=== PATIENT | male | born 1995 | race African-American/Black ===

== ENCOUNTER 2021-06-03 10:02 | Outpatient (CLI) | payer BC | END 2021-06-03 10:03 | disposition home or self-care (01) | LOC: CSHCT 10:02 | PROVIDERS: ATTEND Surgery | DX: K42.9 Umbilical hernia without obstruction or gangrene (principal); Q79.8 Other congenital malformations of musculoskeletal system; K76.0 Fatty (change of) liver, not elsewhere classified; K80.20 Calculus of gallbladder without cholecystitis without obstruction | CPT/HCPCS: 74176 ==

== ENCOUNTER 2021-06-13 11:26 | Outpatient (CLI) | payer BC ==
[2021-06-14 16:40] LABS: SARS-CoV-2 PCR by NAA DETECTED (NotDetected)
== END 2021-06-13 11:27 | disposition home or self-care (01) ==
LOC: CSHLAB 11:26
PROVIDERS: ATTEND Surgery
DX: U07.1 COVID-19 (principal); K42.9 Umbilical hernia without obstruction or gangrene
CPT/HCPCS: U0003; U0005

== ENCOUNTER 2021-07-14 06:03 | Day surgery (SDC) | payer BC ==
[2021-06-13 13:02] VITALS: BMI 40.5
[2021-07-14] MEDS ORDERED: Bupivacaine PF 0.5% 30 ML VIAL ONE (06:42)
[2021-07-14] MEDS ORDERED: Lidocaine 1% MPF 2 ML VIAL ONE (06:43)
[2021-07-14] MEDS ORDERED: Midazolam HCl 2 mg/2 ml Vial ONE (07:21)
[2021-07-14] MEDS ORDERED: ceFAZolin 2 GM/Dextrose 50 ML IVPB ONE (07:24)
[2021-07-14] MEDS ORDERED: PROPOFOL 20 ML ONE (07:30)
[2021-07-14] MEDS ORDERED: Lidocaine 2% PF 5 ML VIAL ONE (07:30)
[2021-07-14] MEDS ORDERED: Ondansetron PF 4 MG/2 ML Vial ONE (07:30)
[2021-07-14] MEDS ORDERED: Dexamethasone 20 MG/5 ML VIAL ONE (07:30)
[2021-07-14] MEDS ORDERED: Fentanyl 100 MCG/2 ML VIAL ONE ×2 (07:30→07:47)
[2021-07-14] MEDS ORDERED: Rocuronium Bromide 10 MG/ML (10ML VIAL) ONE (07:30)
[2021-07-14] MEDS ORDERED: Ketorolac Tromethamine 30 MG/ML VIAL ONE (07:31)
[2021-07-14] MEDS ORDERED: Glycopyrrolate 0.2 MG/ML 5 ML SYRINGE ONE (07:51)
[2021-07-14] MEDS ORDERED: SUGAMMADEX SODIUM 200 MG/2 ML VIAL ONE (08:08)
[2021-07-14] MEDS ORDERED: Esmolol 100 MG/10 ML VIAL ONE (08:25)
[2021-07-14] MEDS ORDERED: HYDROcodone/Acetaminophen 5/325 mg Tablet PO PRN (08:32)
== END 2021-07-14 09:50 | disposition home or self-care (01) ==
LOC: CSHSDC 06:03
PROVIDERS: ATTEND Surgery
PROC: 0WQF0ZZ Repair Abdominal Wall, Open Approach (ICD-10-PCS; principal; 2021-07-14)
DX: K42.9 Umbilical hernia without obstruction or gangrene (principal); E66.9 Obesity, unspecified; J45.909 Unspecified asthma, uncomplicated; Z86.19 Personal history of other infectious and parasitic diseases
CPT/HCPCS: J0690; J1100; J1885; J2001; J2250; J2405; J2704; J3010; S0020